=== PATIENT | female | born 1965 | race Two or more races ===

== ENCOUNTER 2017-01-10 21:52 | Emergency (ER) | payer SELFPAY ==
[2017-01-10] MEDS ORDERED: NS 1,000 ML IV ONE (22:16)
[2017-01-10] MEDS ORDERED: HYDROmorphONE/DILAUDID 1 MG/ML SYR IVP ONE (22:16)
[2017-01-10] MEDS ORDERED: ONDANSETRON 4 MG/2 ML VIAL IVP ONE (22:16)
[2017-01-10 22:59] LABS: % IMMATURE GRANULYOCYTES 0.4 % (0.0-1.1); ABSOLUTE IMMATURE GRANULOCYTES 0.03 10^3/uL (0.00-0.10); ADD DIFF? NO; ADD MORPH? NO; ADD SCAN? NO; ATYPICAL LYMPHOCYTE FLAG 10 (0-99); FRAGMENT RBC FLAG 0 (0-99); HEMATOCRIT 36.7 % (38.0-47.0); LEFT SHIFT FLG 0 (0-99); LIPEMIA HEMOLYSIS FLAG 80 (0-99); MEAN CELL HEMOGLOBIN 26.5 pg (27.9-34.1); MEAN CELL HEMOGLOBIN CONCENTR. 32.7 g/dL (32.4-36.7); MEAN PLATELET VOLUME 10.3 fL (8.7-11.7); PLATELET CLUMPS FLAG 0 (0-99); PLATELET COUNT 238 10^3/uL (150-400); RED BLOOD CELL COUNT 4.53 10^6/uL (4.18-5.33); RED CELL DISTRIBUTION WIDTH 13.5 % (11.5-15.2)
[2017-01-10 23:08] LABS: ALANINE AMINOTRANSFERASE 28 IU/L (9-52); ALBUMIN 3.9 g/dL (3.5-5.0); ALKALINE PHOSPHATASE 43 IU/L (38-126); ANION GAP 8 mEq/L (8-16); ASPARTATE AMINOTRANSFERASE 17 IU/L (14-46); BILIRUBIN,TOTAL 0.5 mg/dL (0.1-1.4); BILIRUBIN-CONJUGATED 0.1 mg/dL (0.0-0.5); BILIRUBIN-UNCONJUGATED 0.4 mg/dL (0.0-1.1); CALCIUM 9.1 mg/dL (8.5-10.4); CARBON DIOXIDE 24 mEq/l (22-31); CHLORIDE 100 mEq/L (97-110); CREATININE 0.8 mg/dL (0.6-1.0); GLOMERULAR FILTRATION RATE > 60; GLUCOSE 191 mg/dL (70-100); POTASSIUM 3.7 mEq/L (3.5-5.2); SODIUM 132 mEq/L (134-144)
[2017-01-10] MEDS ORDERED: FAMOTIDINE 20 MG/2 ML SDV IVP ONE (23:12)
--- NOTE | 2017-01-10 23:41 | EDPHY ---
H & P Stated Complaint: CAMPOVER[place], abd pain; similar to prior migraines - Personal History LMP (Females 10-55): Post Menopausal Current Tetanus/Diphtheria Vaccine: Unsure - Medical/Surgical History Hx Asthma: No Hx Chronic Respiratory Disease: No Hx Diabetes: Yes Hx Cardiac Disease: No Hx Renal Disease: No Hx Cirrhosis: No Hx Alcoholism: No Hx HIV/AIDS: No Hx Splenectomy or Spleen Trauma: No Other PMH: PMHx: diabetes II, migraine. PSHx: c section - Social History Smoking Status: Never smoked Time Seen by Provider: 01/10/17 22:02 HPI/ROS: Chief complaint: Abdominal pain History of present illness: This is a 51-year-old female who presents to the emergency department for evaluation of abdominal pain. Patient reports the onset of symptoms over the last 2 hours. It began shortly after eating a meal. She describes a burning sensation in the epigastric region. There has been associated nausea. No other associated signs or symptoms reported including no fevers. No diarrhea or constipation, no urinary symptoms. She has had similar symptoms in the past. However it does not sound like she has been worked up for it previously. Review of systems: A 10 point review of systems was obtained and other than described above was negative (Clay Mayes) - Physical Exam Exam: General Appearance: Alert, nontoxic. Eyes: Pupils equal and round no pallor or injection. ENT, Mouth: Mucous membranes moist. Respiratory: There are no retractions, lungs are clear to auscultation. Cardiovascular: Regular rate and rhythm. Gastrointestinal: Bowel sounds are normal. Abdomen is soft and nondistended. There is tenderness in epigastric and right upper quadrant most pronounced in the epigastric region. No peritoneal signs. Neurological: Alert and oriented x4. Strength and sensation intact and symmetrical. Skin: Warm and dry, no rashes. Musculoskeletal: Neck is supple non tender. Extremities are symmetrical, full range of motion. Psychiatric: Patient is oriented X 3, there is no agitation. (Clay Mayes) Constitutional: Initial Vital Signs Temperature (C) 36.4 C 01/10/17 21:57 Heart Rate 61 01/10/17 21:57 Respiratory Rate 14 01/10/17 21:57 Blood Pressure 147/86 H 01/10/17 21:57 O2 Sat (%) 98 01/10/17 21:57 O2 Delivery Mode Room Air Allergies/Adverse Reactions: No Known Allergies Allergy (Unverified 01/10/17 21:56) Home Medications: Medication Instructions Recorded Metformin HCl 01/10/17 Famotidine [Pepcid] 20 mg PO BID 7 Days 01/11/17 Medical Decision Making - Diagnostics Imaging: Discussed imaging studies w/ call center team leader Radiologist - Diagnostics Imaging Results: Imaging Impressions Abdomen Ultrasound 01/10/17 22:17 Impression: Negative right upper quadrant ultrasound. Results called and discussed with LESLI Guerrero on 01/10/2017 at 23:19 ED Course/Re-evaluation: Patient seen under the supervision of my secondary supervising physician Dr. Marcio Rendon. Patient presents to the emergency department for epigastric and right upper quadrant pain after eating. On presentation she is nontoxic. Afebrile and vital signs are stable. There is tenderness on palpation of her abdomen but no peritoneal signs on serial abdominal examinations. Laboratory studies and ultrasound are unremarkable. She is symptomatically treated with improvement in symptoms. She will be discharged home, I will treat her with a trial of Pepcid. She is asked to follow up with her primary care doctor for recheck. Return precautions are given. Patient voiced understanding and agreement with plan. Of note patient requested a female doctor, we informed her that there are no female doctors in the emergency department this evening. However, a female nurse was present at all interactions with patient. (Clay Mayes) Differential Diagnosis: Included but not limited to gastritis, peptic ulcer disease, biliary tract disease, pancreatitis, colitis, appendicitis, an associated complications (Clay Mayes) - Data Points Laboratory Results: Laboratory Results 01/10/17 22:40 01/10/17 22:40 01/10/17 01/10/17 01/10/17 23:55 22:40 22:40 WBC RBC Hgb Hct MCV MCH MCHC RDW Plt Count MPV Neut % (Auto) Lymph % (Auto) [facility] % (Auto) Eos % (Auto) Baso % (Auto) Nucleat RBC Rel Count Absolute Neuts (auto) Absolute Lymphs (auto) Absolute Monos (auto) Absolute Eos (auto) Absolute Basos (auto) Absolute Nucleated RBC Immature Gran % Immature Gran # Sodium 132 mEq/L L mEq/L (134-144) Potassium 3.7 mEq/L mEq/L (3.5-5.2) Chloride 100 mEq/L mEq/L (97-110) Carbon Dioxide 24 mEq/l mEq/l (22-31) Anion Gap 8 mEq/L mEq/L (8-16) BUN 17 mg/dL mg/dL (7-23) Creatinine 0.8 mg/dL mg/dL (0.6-1.0) Estimated GFR > 60 Glucose 191 mg/dL H mg/dL (70-100) Calcium 9.1 mg/dL mg/dL (8.5-10.4) Total Bilirubin 0.5 mg/dL mg/dL (0.1-1.4) Conjugated Bilirubin 0.1 mg/dL mg/dL (0.0-0.5) Unconjugated Bilirubin 0.4 mg/dL mg/dL (0.0-1.1) AST 17 IU/L IU/L (14-46) ALT 28 IU/L IU/L (9-52) Alkaline Phosphatase 43 IU/L IU/L (38-126) Total Protein 7.0 g/dL g/dL (6.3-8.2) Albumin 3.9 g/dL g/dL (3.5-5.0) Lipase 150 IU/L IU/L (23-300) Beta HCG, Qual NEGATIVE Urine Color PALE YELLOW Urine Appearance CLEAR Urine pH 7.0 (5.0-7.5) Ur Specific [place] 1.010 (1.002-1.030) Urine Protein NEGATIVE (NEGATIVE) Urine Ketones NEGATIVE (NEGATIVE) Urine Blood NEGATIVE (NEGATIVE) Urine Nitrate NEGATIVE (NEGATIVE) Urine Bilirubin NEGATIVE (NEGATIVE) Urine Urobilinogen NEGATIVE EU EU (0.2-1.0) Ur Leukocyte Esterase NEGATIVE (NEGATIVE) Urine RBC 1-3 /hpf /hpf (0-3) Urine WBC 1-3 /hpf /hpf (0-3) Ur Epithelial Cells NONE SEEN /lpf /lpf (NONE-1+) Urine Mucus TRACE /lpf /lpf (NONE-1+) Urine Glucose 1+ H (NEGATIVE) 01/10/17 22:40 WBC 8.39 10^3/uL 10^3/uL (3.80-9.50) RBC 4.53 10^6/uL 10^6/uL (4.18-5.33) Hgb 12.0 g/dL L g/dL (12.6-16.3) Hct 36.7 % L % (38.0-47.0) MCV 81.0 fL L fL (81.5-99.8) MCH 26.5 pg L pg (27.9-34.1) MCHC 32.7 g/dL g/dL (32.4-36.7) RDW 13.5 % % (11.5-15.2) Plt Count 238 10^3/uL 10^3/uL (150-400) MPV 10.3 fL fL (8.7-11.7) Neut % (Auto) 65.0 % % (39.3-74.2) Lymph % (Auto) 26.7 % % (15.0-45.0) [facility] % (Auto) 4.3 % L % (4.5-13.0) Eos % (Auto) 3.2 % % (0.6-7.6) Baso % (Auto) 0.4 % % (0.3-1.7) Nucleat RBC Rel Count 0.0 % % (0.0-0.2) Absolute Neuts (auto) 5.46 10^3/uL 10^3/uL (1.70-6.50) Absolute Lymphs (auto) 2.24 10^3/uL 10^3/uL (1.00-3.00) Absolute Monos (auto) 0.36 10^3/uL 10^3/uL (0.30-0.80) Absolute Eos (auto) 0.27 10^3/uL 10^3/uL (0.03-0.40) Absolute Basos (auto) 0.03 10^3/uL 10^3/uL (0.02-0.10) Absolute Nucleated RBC 0.00 10^3/uL 10^3/uL (0-0.01) Immature Gran % 0.4 % % (0.0-1.1) Immature Gran # 0.03 10^3/uL 10^3/uL (0.00-0.10) Sodium Potassium Chloride Carbon Dioxide Anion Gap BUN Creatinine Estimated GFR Glucose Calcium Total Bilirubin Conjugated Bilirubin Unconjugated Bilirubin AST ALT Alkaline Phosphatase Total Protein Albumin Lipase Beta HCG, Qual Urine Color Urine Appearance Urine pH Ur Specific [place] Urine Protein Urine Ketones Urine Blood Urine Nitrate Urine Bilirubin Urine Urobilinogen Ur Leukocyte Esterase Urine RBC Urine WBC Ur Epithelial Cells Urine Mucus Urine Glucose Medications Given: Discontinued Medications Famotidine (Pepcid) 20 mg IVP EDNOW ONE Stop: 01/10/17 23:13 Last Admin: 01/10/17 23:33 Dose: 20 mg Hydromorphone HCl (Dilaudid) 0.5 mg IVP EDNOW ONE Stop: 01/10/17 22:17 Last Admin: 01/10/17 22:38 Dose: 0.5 mg Sodium Chloride (Ns) 1,000 mls @ 0 mls/hr IV EDNOW ONE; Wide Open PRN Reason: Protocol Stop: 01/10/17 22:17 Last Admin: 01/10/17 22:38 Dose: 1,000 mls Ondansetron HCl (Zofran) 4 mg IVP EDNOW ONE Stop: 01/10/17 22:17 Last Admin: 01/10/17 22:39 Dose: 4 mg Departure - Departure Disposition: Home, Routine, Self-Care Clinical Impression: Abdominal pain Qualifiers: Abdominal location: upper abdomen, unspecified Qualified Code(s): R10.10 - Upper abdominal pain, unspecified Condition: Good Instructions: Acute Abdominal Pain (ED) Additional Instructions: Follow-up with a primary care doctor and director of adult epilepsy for continued evaluation and care Take [id number] Pepcid as directed for the next 1-2 weeks for symptom control If symptoms worsen or new symptoms develop return to the emergency room for recheck Referrals: NONE *PRIMARY CARE P,. [Primary Care Provider] - As per Instructions Dominic Zee MD [Medical Doctor] - As per Instructions Power Reese MD, FACG [Medical Doctor] - As per Instructions Prescriptions: Famotidine [Pepcid] 20 mg PO BID 7 Days
[2017-01-11 00:05] LABS: COLOR PALE YELLOW; LEUKOCYTE ESTERASE,URINE NEGATIVE (NEGATIVE); NITRITE,URINE NEGATIVE (NEGATIVE)
[2017-01-11 00:06] LABS: MUCUS TRACE /lpf (NONE-1+)
[2017-01-11 00:35] VITALS: BP 125/87; PULSE 80; RESP 18; TEMP 97.7; O2SAT 96
== END 2017-01-11 00:37 | disposition home or self-care (01) ==
LOC: EDBD 21:52
DX: R10.10 Upper abdominal pain, unspecified (principal); E11.9 Type 2 diabetes mellitus without complications; E86.9 Volume depletion, unspecified; Z79.84 Long term (current) use of oral hypoglycemic drugs
CPT/HCPCS: 96374; J1170; J2405